=== PATIENT | female | born 1980 | race Caucasian/White ===

== ENCOUNTER → 2021-04-05 13:22 | Outpatient (CLI) | payer OTHER, SELFPAY ==
--- NOTE | ~2021-04-05 | MM_ITS ---
EXAMINATION: MM screening eleazar BI w nella HISTORY: Screening mammogram TECHNIQUE: Craniocaudal and mediolateral oblique 3-D tomosynthesis images were obtained and synthetic 2-D images were generated. CAD analysis was submitted and interpreted. COMPARISON: 06/03/2019 BREAST PARENCHYMAL COMPOSITION: The breasts are heterogeneously dense, which may obscure small masses . FINDINGS: There is no evidence of suspicious mass, calcification, or architectural distortion to sugg est malignancy in either breast. There has been no suspicious interval change. IMPRESSION: 1. No mammographic evidence of malignancy. 2. Recommend routine screening mammography in one year. BI-RADS Category 1: Negative Reviewed, dictated and finalized at location A.
== END ==
PROVIDERS: PCP Internal Medicine; Visit Provider Internal Medicine
DX: Z12.31 Encounter for screening mammogram for malignant neoplasm of breast (principal)
CPT/HCPCS: 77063; 77067

== ENCOUNTER 2021-07-05 12:22 | Outpatient (CLI) | payer OTHER, SELFPAY ==
--- NOTE | 2021-07-05 | ECG_ITS ---
Measurements Intervals [place] Rate: 73 P: 19 MI: 156 QRS: 48 QRSD: 76 T: 30 QT: 386 QTc: 428 Interpretive Statements SINUS RHYTHM LOW QRS VOLTAGE IN PRECORDIAL LEADS BORDERLINE ECG Electronically Signed On 07-05-2021 12:57:43 REVENUE CYCLE MANAGER by Jeremiah Dubose D.O.
[2021-07-05 12:50] LABS: Basophils Percent Auto 0.5 % (0.2-1.2); Eosinophils Absolute Auto 0.1 K/mm3 (0-0.3); Eosinophils Percent Auto 1.8 % (0-4.4); Hematocrit 37.7 % (37.0-47.0); Hemoglobin 12.7 g/dL (12.0-15.0); Immature Granulocyte Absolute 0.03 K/mm3 (0.00-0.031); Immature Granulocyte Percent A 0.4 % (0-0.5); Lymphocytes Absolute Auto 2.36 K/mm3 (0.9-3.2); Lymphocytes Percent Auto 30.4 % (18.3-44.2); Mean Corpuscular HGB Conc 33.7 g/dl (32-36); Mean Corpuscular Hemoglobin 28.3 pg (26-34); Mean Platelet Volume 9.1 fl (7.4-10.4); Monocytes Absolute Auto 0.6 K/mm3 (0.1-0.6); Monocytes Percent Auto 7.6 % (2.6-8.5); Neutrophils Absolute Auto 4.6 K/mm3 (1.3-6.7); Neutrophils Percent Auto 59.3 % (45.5-73.1); Platelet Count Result 415 k/mm3 (150-375); Red Blood Count 4.49 M/mm3 (4.2-5.4); Red Cell Distribution Width 13.9 % (11.5-14.5); White Blood Count 7.8 K/mm3 (4.5-10.0)
[2021-07-05 13:01] LABS: Alanine Aminotransferase 31 U/L (4-35); Albumin Level 4.2 g/dL (3.5-5.1); Alkaline Phosphatase 47 U/L (38-126); Anion Gap 10 mmol/L (8-16); Aspartate Amino Transferase 33 U/L (14-36); Bilirubin,Total 0.6 mg/dL (0.2-1.3); Blood Urea Nitrogen 17 mg/dL (7-17); Calcium 9.4 mg/dL (8.4-10.2); Carbon Dioxide 24 mmol/L (22-30); Chloride 101 mmol/L (98-107); Estimated Glomerular Filt Rate > 60; Glucose 113 mg/dL (65-110); Potassium 3.9 mmol/L (3.4-5.0); Sodium 135 mmol/L (137-145)
[2021-07-05 13:56] LABS: Add Urine Microscopic? NO; Appearance Urine Clear (Clear); Bilirubin Urine Negative (Negative); Blood Urine Negative (Negative); Color Urine Yellow (Yellow); Glucose Urine UA Negative (Negative); Ketones Urine Negative (Negative); Leukocyte Esterase Ur Negative LEU/UL (NEGATIVE); Nitrate Urine Negative (Negative); Protein Urine Negative (Negative); Specific Grav Ur 1.014 (1.001-1.035); Urobilinogen Urine Negative mg/dL (<2.0)
== END 2021-07-05 12:23 | disposition home or self-care (01) ==
PROVIDERS: PCP Internal Medicine; Visit Provider Internal Medicine
DX: Z01.818 Encounter for other preprocedural examination (principal)
CPT/HCPCS: 36415; 80053; 81003; 85025; 93005

== ENCOUNTER → 2022-07-14 12:10 | Outpatient (CLI) | payer OTHER, SELFPAY ==
--- NOTE | ~2022-07-14 | MM_ITS ---
EXAMINATION: MM screening eleazar BI w nella HISTORY: Screening TECHNIQUE: Craniocaudal and mediolateral oblique 3-D tomosynthesis images were obtained and synthetic 2-D images were generated. CAD analysis was submitted and interpreted. COMPARISON: Comparison to multiple prior studies sequentially, with oldest reviewed study dated 08/2018. BREAST PARENCHYMAL COMPOSITION: The breasts are heterogeneously dense, which may obscure small masses . FINDINGS: There is no evidence of suspicious mass, calcification, or architectural distortion to sugg est malignancy in either breast. There has been no suspicious interval change. IMPRESSION: 1. No mammographic evidence of malignancy. 2. Recommend routine screening mammography in one year. BI-RADS Category 1: Negative Reviewed, dictated and finalized at location A. VISION NEWS REPORTER
== END ==
PROVIDERS: PCP Family Medicine; Visit Provider Obstetrics & Gynecology
DX: Z12.31 Encounter for screening mammogram for malignant neoplasm of breast (principal)
CPT/HCPCS: 77063; 77067

== ENCOUNTER 2023-09-08 10:27 | Outpatient (CLI) | payer OTHER, SELFPAY ==
--- NOTE | ~2023-09-08 | MM_ITS ---
EXAMINATION: MM screening eleazar BI w nella HISTORY: Screening mammogram TECHNIQUE: Craniocaudal and mediolateral oblique 3-D tomosynthesis images were obtained and synthetic 2-D images were generated. CAD analysis was submitted and interpreted. COMPARISON: 07/14/2022, 04/05/2021 bilateral screening mammogram examinations BREAST PARENCHYMAL COMPOSITION: The breasts are heterogeneously dense, which may obscure small masses . FINDINGS: There is no evidence of suspicious mass, calcification, or architectural distortion to sugg est malignancy in either breast. There has been no suspicious interval change. IMPRESSION: 1. No mammographic evidence of malignancy. 2. Recommend routine screening mammography in one year. BI-RADS Category 1: Negative Reviewed, dictated and finalized at location A. FINISHER
== END 2023-09-08 10:28 | disposition home or self-care (01) ==
LOC: ANHIMG 10:30
PROVIDERS: PCP Family Medicine; Visit Provider Obstetrics & Gynecology
DX: Z12.31 Encounter for screening mammogram for malignant neoplasm of breast (principal)
CPT/HCPCS: 77063; 77067

== ENCOUNTER 2024-01-31 07:17 | Day surgery (SDC) | payer OTHER, SELFPAY ==
[2024-01-01 08:39] VITALS: BMI 35.9
[2024-01-18 09:37] VITALS: BMI 36.8
--- NOTE | 2024-01-30 12:19 | WPDANESEPPF ---
Anes - Initial Pre Proc Eval Procedure: Operation Date: 01/31/24 09:30 Proposed Procedures p Esophagogastroduodenoscopy - Mark Brown MD Date/Time: 01/30/24 12:19 Surgeon: Mark Brown MD Pre Op Diagnosis: Dysphagia,unspecified Patient Data Age: 43 Gender: F Height: 1.55 m Weight: 88.5 kg Allergies Allergy/AdvReac Type Severity Reaction Status Date / Time Cephalosporins Allergy Mild Rash Verified 01/18/24 09:51 Penicillins Allergy Mild Rash Verified 01/18/24 09:51 amoxicillin [From Augmentin] Allergy Rash Verified 01/18/24 09:51 ceftriaxone Allergy Itching Verified 01/18/24 09:51 clavulanic acid Allergy Rash Verified 01/18/24 09:51 [From Augmentin] Home Medications Medication Instructions Recorded Confirmed Type fenofibrate nanocrystallized 145 145 mg PO DAILY 12/20/23 01/18/24 History mg tablet fluoxetine 40 mg capsule (Prozac) 40 mg PO DAILY 12/20/23 01/18/24 History lisdexamfetamine 30 mg capsule 30 mg PO DAILY 12/20/23 01/18/24 History (Vyvanse) montelukast 10 mg tablet 10 mg PO DAILY 12/20/23 01/18/24 History (Singulair) naltrexone 4.5 mg capsule 4.5 mg PO BID 12/20/23 01/18/24 History omeprazole 40 mg capsule,delayed 40 mg PO DAILY 12/20/23 01/18/24 History release Results Review: All pre-operative results and documents have been reviewed as part of the pre-operative evaluation. [facility] Past Medical History Medical History Anxiety Depression Dysphagia EDS (Ilan-Danlos syndrome) Marijuana smoker Smoker Surgical History Surgical History H/O cervical discectomy Family History Family History (Updated 12/20/23 @ 10:56 by Nandini Sanabria CMA) Mother Esophageal stricture Social History Social History Smoking packs per day: 0.5 Smoking cigarettes per day: 10.0 Years smoked: 15 Smoking pack-years: 7.50 Smoking status: Current every day smoker Tobacco type: cigarettes Alcohol intake: current Drinks per week: 3 Substance use: current Substance use type: marijuana Last use: Daily Living arrangements: with family Spiritual care concerns: No Anes - Eval Final PreProcedure Day of Procedure 01/30/24 12:19 Patient weight: obese Results Review: All pre-operative results and documents have been reviewed as part of the pre-operative evaluation. Informed Consent: The patient's anesthetic plan and its attendant risks and benefits were discussed with the patient/family/POA. Questions were solicited and answers provided to the satisfaction of the patient/family/POA.
--- NOTE | 2024-01-31 08:53 | PM.HPGS ---
History of Present Illness History of Present Illness Consent: Risks, benefits, and alternatives have been discussed and questions answered. Patient agrees to proceed with procedure. Chief complaint: Dysphagia Narrative: Veronica Hand is a 43 year old female referred for EGD. Patient reports that large pieces of food and pills become stuck in her throat when swallowing. They sometimes take quite some time to pass. Patient reports several family members with similar symptoms that have had esophageal web dilatation in the past. Patient reports the symptoms began after cervical neck surgery in 2020. Patient had disc surgery of the cervical spine in July of 2020. After this happened symptoms of dysphagia began. EGD is now requested to exclude narrowing of the esophagus. Review of Systems Review of Systems: All systems reviewed & are unremarkable except as noted in HPI and below PMFSH Past Medical History Medical History Anxiety Depression Dysphagia EDS (Ilan-Danlos syndrome) Marijuana smoker Smoker Surgical History Surgical History H/O cervical discectomy Family History Family History (Updated 12/20/23 @ 10:56 by Nandini Sanabria CMA) Mother Esophageal stricture Social History Social History Smoking packs per day: 0.5 Smoking cigarettes per day: 10.0 Years smoked: 15 Smoking pack-years: 7.50 Smoking status: Current every day smoker Tobacco type: cigarettes Alcohol intake: current Drinks per week: 3 Substance use: current Substance use type: marijuana Last use: Daily Living arrangements: with family Spiritual care concerns: No Meds Home Medications and Allergies Home Medications Medication Instructions Recorded Confirmed Type fenofibrate nanocrystallized 145 145 mg PO DAILY 12/20/23 01/18/24 History mg tablet fluoxetine 40 mg capsule (Prozac) 40 mg PO DAILY 12/20/23 01/18/24 History lisdexamfetamine 30 mg capsule 30 mg PO DAILY 12/20/23 01/18/24 History (Vyvanse) montelukast 10 mg tablet 10 mg PO DAILY 12/20/23 01/18/24 History (Singulair) naltrexone 4.5 mg capsule 4.5 mg PO BID 12/20/23 01/18/24 History omeprazole 40 mg capsule,delayed 40 mg PO DAILY 12/20/23 01/18/24 History release Allergies Allergy/AdvReac Type Severity Reaction Status Date / Time Cephalosporins Allergy Mild Rash Verified 01/31/24 08:55 Penicillins Allergy Mild Rash Verified 01/31/24 08:55 amoxicillin [From Augmentin] Allergy Rash Verified 01/31/24 08:55 ceftriaxone Allergy Itching Verified 01/31/24 08:55 clavulanic acid Allergy Rash Verified 01/31/24 08:55 [From Augmentin] Exam Narrative: Physical exam reveals patient to be alert. Vital signs stable. HEENT exam is unremarkable. Patient is anicteric. S are clear to auscultation and percussion. Heart is without murmur or extra sounds. Abdomen bowel sounds are present soft nontender with no organomegaly. Assessment and Plan Assessment and plan (1) Dysphagia: Qualifiers: Dysphagia type: esophageal phase Qualified Code(s): R13.19 - Other dysphagia Code(s): R13.10 - Dysphagia, unspecified Status: Acute Assessment and Plan: Patient with dysphagia . Food seems to catch in the upper esophagus. Differential diagnosis includes narrowing of the esophagus. Cannot exclude this may be related to cervical spine surgery. Plan for EGD assess more thoroughly. Further recommendations may be given after endoscopy. (2) EDS (Ilan-Danlos syndrome): Code(s): Q79.60 - Ilan-Danlos syndrome, unspecified Status: Acute
[2024-01-31 08:57] VITALS: BP 120/84; PULSE 76; RESP 18; TEMP 36.6; O2SAT 97; BMI 36.1
--- NOTE | 2024-01-31 09:30 | WPDANESEPPF ---
Anes - Initial Pre Proc Eval Procedure: Operation Date: 01/31/24 09:30 Proposed Procedures p Esophagogastroduodenoscopy - Mark Brown MD Date/Time: 01/31/24 09:30 Surgeon: Mark Brown MD Pre Op Diagnosis: Dysphagia Patient Data Age: 43 Gender: F Height: 1.55 m Weight: 86.8 kg Last Vital Signs Temp 36.6 C 01/31/24 08:57 Pulse 76 01/31/24 08:57 Resp 18 01/31/24 08:57 BP 120/84 01/31/24 08:57 Pulse Ox 97 01/31/24 08:57 O2 Del Method Room Air 01/31/24 08:57 Allergies Allergy/AdvReac Type Severity Reaction Status Date / Time Cephalosporins Allergy Mild Rash Verified 01/31/24 08:55 Penicillins Allergy Mild Rash Verified 01/31/24 08:55 amoxicillin [From Augmentin] Allergy Rash Verified 01/31/24 08:55 ceftriaxone Allergy Itching Verified 01/31/24 08:55 clavulanic acid Allergy Rash Verified 01/31/24 08:55 [From Augmentin] Home Medications Medication Instructions Recorded Confirmed Type fenofibrate nanocrystallized 145 145 mg PO DAILY 12/20/23 01/31/24 History mg tablet fluoxetine 40 mg capsule (Prozac) 40 mg PO DAILY 12/20/23 01/31/24 History lisdexamfetamine 30 mg capsule 30 mg PO DAILY 12/20/23 01/31/24 History (Vyvanse) montelukast 10 mg tablet 10 mg PO DAILY 12/20/23 01/31/24 History (Singulair) naltrexone 4.5 mg capsule 4.5 mg PO BID 12/20/23 01/31/24 History omeprazole 40 mg capsule,delayed 40 mg PO DAILY 12/20/23 01/31/24 History release Patient hx anesthesia problems: none Family hx anesthesia problems: none Results Review: All pre-operative results and documents have been reviewed as part of the pre-operative evaluation. [facility] Past Medical History Medical History Anxiety Depression Dysphagia EDS (Ilan-Danlos syndrome) Marijuana smoker Smoker Surgical History Surgical History H/O cervical discectomy Family History Family History Mother Esophageal stricture Social History Social History Smoking packs per day: 0.5 Smoking cigarettes per day: 10.0 Years smoked: 15 Smoking pack-years: 7.50 Smoking status: Current every day smoker Tobacco type: cigarettes Alcohol intake: current Drinks per week: 3 Substance use: current Substance use type: marijuana Last use: Daily Living arrangements: with family Spiritual care concerns: No Anes - Eval Final PreProcedure Day of Procedure 01/31/24 09:30 Patient weight: obese Heart: regular rate and rhythm Lungs: clear to auscultation Airway: Mallampati scale class II Neurological: alert and oriented Last oral intake: >/= 8 hours ASA classification: III Emergent: no Anesthetic plan: proceed Anesthesia type and monitoring: general GIVS and standard monitoring Results Review: All pre-operative results and documents have been reviewed as part of the pre-operative evaluation. Informed Consent: The patient's anesthetic plan and its attendant risks and benefits were discussed with the patient/family/POA. Questions were solicited and answers provided to the satisfaction of the patient/family/POA.
[2024-01-31] MEDS: LACTATED RINGERS 1,000 ML 150 ML IV CONT (09:35)
[2024-01-31 09:52] VITALS: BP 125/74; PULSE 72; RESP 18; O2SAT 95
[2024-01-31 10:02] VITALS: BP 113/75; PULSE 66; RESP 18; O2SAT 97
[2024-01-31 10:12] VITALS: BP 116/75; PULSE 66; RESP 18; O2SAT 98
--- NOTE | 2024-01-31 10:29 | WPDANESPN ---
Anes - Prog Note Post-Op Date/Time: 01/31/24 10:29 Cardiovascular status: normal Respiratory status: normal Airway patency: baseline Mental status: baseline Vital Signs: Last Vital Signs Temp 36.6 C 01/31/24 08:57 Pulse 66 01/31/24 10:02 Resp 18 01/31/24 10:02 BP 113/75 01/31/24 10:02 Pulse Ox 97 01/31/24 10:02 O2 Del Method Room Air 01/31/24 10:02 Pain Score (VAS): 0/10 I/O: Intake & Output 01/30/24 01/31/24 01/31/24 23:59 07:59 15:59 Intake Total 400 Balance 400 Patient Feedback: Patient satisfied with anesthetic care.
== END 2024-01-31 10:20 | disposition home or self-care (01) ==
PROVIDERS: PCP Family Medicine; Visit Provider Internal Medicine Gastroenterology
PROC: 0DJ08ZZ Inspection of Upper Intestinal Tract, Via Natural or Artificial Opening Endoscopic (ICD-10-PCS; CPT 43235; principal; 2024-01-31 09:30)
DX: R13.19 Other dysphagia (principal); K22.2 Esophageal obstruction
CPT/HCPCS: 43450

== ENCOUNTER 2024-09-09 08:16 | Outpatient (CLI) | payer OTHER, SELFPAY ==
--- NOTE | ~2024-09-09 | MM_ITS ---
EXAMINATION: MM screening [facility] BI w nella HISTORY: Screening mammogram TECHNIQUE: Craniocaudal and mediolateral oblique 3-D tomosynthesis images were obtained and synthetic 2-D images were generated. CAD analysis was submitted and interpreted. COMPARISON: 09/08/2023, 07/14/2022, 04/05/2021 BREAST PARENCHYMAL COMPOSITION:Dense: The breasts are heterogeneously dense, which may obscure small masses. FINDINGS: No suspicious mass, calcification, or architectural distortion are identified in either [place] ast to suggest malignancy. There has been no suspicious interval change. IMPRESSION: No mammographic evidence of malignancy. Recommend routine screening mammography in one year. BI-RADS Category 1: Negative Reviewed, dictated and finalized at location .
--- OUTSIDE RECORDS SUMMARY | 2024-09-09 08:27 | XMS_ITS | Encounter Summary ---
Author Organization [facility] Healthcare Address [address] [place] [address] Care Team Providers Care Horse Racetrack Manager Name Role Phone Jordan Stoddard MD Primary Care Provider [phone] Pankaj Magaña MD Primary Care Provider [phone] Pankaj Magaña MD Primary Care Provider [phone] Encounter Details Date Type Department Care Team (Late st Contact Info) Description 05/02/[address] 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 01/11/2022 01/19/2022 05/11/2022 3:[address] documented as of this encounter Care Teams Horse Racetrack Manager Relationship Specialty Start Date End Date Jordan Stoddard MD PCP - General 02/27/18 10/26/21 Pankaj Magaña MD PCP - General Family Medicine 10/27/21 03/11/23 Pankaj Magaña MD [address] [place] [address] PCP - General Family Medicine 03/12/23 documented as of this encounter
--- OUTSIDE RECORDS SUMMARY | 2024-09-09 08:27 | XMS_ITS | Referral Summary ---
Author Organization [facility] Address [address] [place] [address] Care Team Providers Care Hat Forming Machine Operator Name Role Phone Pankaj Magaña MD Primary Care Provider [phone] Allergies Active Allergy Reactions Criticality Noted Date Comments Amoxicillin-Pot Clavulanate Rash Reaction: Rash, Ceftriaxone Itching Reaction: Itching, Medications naltrexone (LOW DOSE) 4.5 mg capsuleIndications:E hlers-Danlos syndrome Take 1 capsule (4.5 mg total) by mouth 2 (two) times a day 180 capsule 3 11/13/19 24 025 Active omeprazole (PriLOSEC) 40 mg capsule TAKE ONE CAPSULE BY MOUTH EVERY DAY 100 capsule 1 04/03/20 24 Active FLUoxetine (PROzac) 40 mg capsule TAKE ONE CAPSULE BY MOUTH EVERY DAY 100 capsule 1 04/28/20 24 Active fenofibrate nanocrystallized (TRICOR) 145 mg tablet TAKE ONE TABLET BY MOUTH EVERY DAY 90 tablet 1 06/23/20 24 Active montelukast (SINGULAIR) 10 mg tablet TAKE ONE TABLET BY MOUTH NIGHTLY 90 tablet 1 06/23/20 24 Active methocarbamoL (ROBAXIN) 500 mg tablet TAKE 1 TABLET (500 MG TOTAL) BY MOUTH 3 (THREE) TIMES A DAY 90 tablet 07/23/19 25 Active lisdexamfetamine (VYVANSE) 30 mg capsule Take 1 capsule (30 mg total) by mouth every morning 30 capsule 08/19/19 25 Active lisdexamfetamine (VYVANSE) 30 mg capsule Take 1 capsule (30 mg total) by mouth every morning 30 capsule 07/10/19 25 025 Discontin ued(Reord er) Active Problems Problem Noted Date Diagnosed Date Insomnia due to medical condition 02/15/2023 Attention deficit hyperactiv ity disorder (ADHD), predominantly inattentive type 02/15/2023 Annual physical exam 10/19/2022 Cervical pain (neck) 04/20/2022 Chronic right shoulder pain 04/20/2022 Trapezius muscle spasm 04/20/2022 Illness, unspecified 07/26/2021 Localized chondromalacia 06/22/2016 Effusion of knee 06/12/2016 Hay fever 10/15/2012 Chronic infection of sinus 05/27/2012 Immunizations Immunization Administration Dates Next Due Influenza, Quadrivalent, Spl it, Preservative Free, Intramuscular 04/06/2022 Influenza, Unspecified 04/04/2023,2021(Deferred: Patient Refused),04/21/2021(Deferred: Patient Refused),04/15/2018 Tdap 02/15/2023 Social History Tobacco Use Types Packs/Day Years Used Date Smoking Tobacco: Every Day Cigarettes Smokeless Tobacco: Never Tobacco Cessation:Ready to Q uit: Not Asked; Counseling Given: Not Answered Comments:Working on smoking with Therapist Alcohol Use Standard Drinks/Week Comments Yes 0 (1 standard drink = 0.6 oz pur e alcohol) frequent AUDIT-C Answer Date Recorded Q1: How often do you have a drink containing alc ohol? 2-3 times a week 02/19/2024 Q2: How many drinks containi ng alcohol do you have on a typical day when you are drinking? 1 or 2 02/19/2024 Q3: How often do you have si x or more drinks on one occasion? 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 Gender Identity Not on file Sexual Orientation Not on file Last Filed Vital Signs Vital Sign Reading Time Taken Comments Blood Pressure 142/80 04/01/2024 12:24 PM CDT Pulse 95 04/01/2024 12:24 PM CDT Temperature 36.1 C (96.9 F) 04/01/2024 12:24 PM CDT Respiratory Rate 16 04/01/2024 12:24 PM CDT Oxygen Saturation 97% 04/01/2024 12:24 PM CDT Inhaled Oxygen Concentration - - Weight 86.5 kg (190 lb 9.6 oz) 04/01/2024 12:24 PM CDT Height 154.9 cm (5' 1 ) 04/01/2024 12:24 PM CDT Body Mass Index 36.01 04/01/2024 12:24 PM CDT Plan of Treatment Not on file Goals Goal Patient Goal Type Associated Problems Recent Progress Patient-Stated? Author CCM Chronic Pain Care Plan Chronic Care Management Improving( 12:27 PM CDT) Yes Magaly Clancy RN Note: Problem: Chronic Pain Goals: 1. Minimize further functional decline 2. Maximize quality of life 3. Control pain Strategies: - Activity/exercise program recommendation - Conservative stepwise pain medicine strategy with multi-disciplinary approach - Recommend healthy lifestyle strategies and compensatory methods as needed Reduce the likelihood of falling Lifestyle No Magaly Clancy RN Note: Below are four things you can do to prevent falls: Begin an exercise program to improve your leg strength & balance Ask your doctor or pharmacist to review your medicines Get annual eye check-ups & update your eyeglasses Make your home safer by: Removing clutter & tripping hazards Putting railings on all stairs & adding grab bars in the bathroom Having good lighting, especially on stairs Contact your local community or senior center for information on exercise, fall prevention programs, or options for improving home safety. Medical Devices Implanted Type Area Public Relations Coordinator Device Identifier Shelf Expiration Date Model / Serial / Lot Cervical Spine Disectomy Spine Cervical Procedures Procedure Name Priority Date/Time Associated Diagnosis Comments SCREENING MAMMOGRAM BILATERAL W MANNY Schedule Routine, Read Routine (OP Routine) 07/14/2022 from Last 3 Months or Most Recently Relevant to Health Maintenance Results * Screening Mammogram Bilateral W Manny (07/14/2022) Anatomical Region Laterality Modality Breast Bilateral Mammography 07/14/2022 us Historical Provider MD [facility] MAMMO PROCEDURES Misa l Result from Last 3 Months or Most Recently Relevant to Health Maintenance Insurance [facility] EMPLOYEE [employer] PLANS Address: [facility] [id number] [place] [id number] [facility] [employer] PLANS Address: [facility] [address] [place] [address] [employer] Address: [facility] [id number] [place] [address] [email or web address] Address: [facility] [id number] [place] [address] Care Teams Hat Forming Machine Operator Relationship Specialty Start Date End Date Pankaj Magaña MD [address] [place] [address] PCP - General Family Medicine 03/12/23
--- OUTSIDE RECORDS SUMMARY | 2024-09-09 08:27 | XMS_ITS | Clinical Summary ---
Author Organization [facility] Address [address] [place] [address] Care Team Providers Care Flat Folding Machine Operator Name Role Phone Pankaj Magaña MD Primary Care Provider [phone] Allergies Active Allergy Reactions Criticality Noted Date [...] 04/04/2023,2021(Deferred: Patient Refused),04/21/2021(Deferred: Patient Refused),04/15/2018 Tdap 02/15/2023 Surgical History Surgery Date Site/Laterality Comments CYSTOSCOPY WISDOM TOOTH EXTRACTION SECTION x 2 NECK SURGERY GUM SURGERY Left gum graft Medical History Medical History Date Comments Arthritis Depression Gastric reflux GERD (gastroesophageal reflux disease) Chronic pain disorder Neck pain Family History Medical History Relation Name Comments Graves' disease Father Hyperthyroidism Father Family histo ry of hyperthyroidism - (Added by TW Conv) Hypertension Mother Family history of hypertension - (Added by TW Conv) Mental illness Sister Mental proble m - (Added by TW Conv) Relation Name Status Comments Father Alive Mother Alive Sister Social History Tobacco Use Types Packs/Day Years [...] on file 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 Gender Identity Not on file Sexual Orientation Not on file Obstetrics History Last Filed Vital Signs Vital Sign Reading [...] 04/01/2024 12:24 PM CDT Plan of Treatment Health Maintenance Due Date Last Done Comments Cervical Cancer Screening 1980 Hepatitis C Screening 1980 Varicella Vaccines (1 of 2 - 13+ 2-dose series) 1993 Hepatitis B Screening 1998 Pneumococcal vaccine <65 (1 of 2 - PCV) 11/26/1999 Breast Cancer Screening-Mammogram 07/14/2023 07/14/2022 Depression Screening 02/16/2024 02/15/2023, 10/19/2022, 10/27/2021 Covid-19 Vaccine ( season) 2024 03/24/2022, 05/09/2021, 08/04/2020, Additional history exists Influenza Vaccine (#1) 2024 , 04/06/2022, 04/15/2018 Regular Well Visit/Exam 18-64 10/24/2024 10/25/2023, 10/19/2022, 10/27/2021 DTaP/Tdap/Td Vaccine (2 - Td or Tdap) 02/15/2033 02/15/2023 HPV Vaccines Aged Out No longer eligi ble based on patient's age to complete this topic Goals Goal Patient Goal Type Associated Problems [...] home safety. Medical Devices Implanted Type Area Certified Executive Chef Device Identifier Shelf Expiration Date Model / [...] Most Recently Relevant to Health Maintenance Insurance [employer] [facility] [employer] PLANS Address: [id number] [place] [phone] [employer] [facility] [employer]ALTH PLANS Address: [id number] [place] [phone] [employer] [facility] [employer] PLANS Address: [phone] [place] [phone] [employer] [facility] [employer] PLANS Address: [facility] [address] [place] [address] Care Teams Flat Folding Machine Operator Relationship Specialty Start Date End Date Pankaj Magaña MD [address] [place] [address] PCP - General Family Medicine 03/12/23
== END 2024-09-09 08:17 | disposition home or self-care (01) ==
LOC: ANHIMG 08:17
PROVIDERS: PCP Family Medicine; Visit Provider Obstetrics & Gynecology
DX: Z12.31 Encounter for screening mammogram for malignant neoplasm of breast (principal)
CPT/HCPCS: 77063; 77067